=== PATIENT | female | born 1960 | race Caucasian/White ===

== ENCOUNTER → 2017-07-31 09:12 | Outpatient (CLI) | payer BC, SELFPAY ==
[2017-07-31 09:37] LABS: Basophils % 0.4 % (0.1-2.0); Eosinophils # 0.1 K/mm3 (0.0-0.4); Hematocrit 43.7 % (37.0-47.0); Hemoglobin 14.4 g/dL (12.2-16.2); Lymphocytes % 29.6 K/mm3 (10-50); Mean Corpuscular HGB Conc 32.9 g/dL (31.8-35.4); Mean Corpuscular Hemoglobin 35.3 pg (27.0-31.2); Mean Corpuscular Volume 107.3 fl (81-99); Mean Platelet Volume 8.1 fl (7.4-10.4); Monocytes # 0.5 K/mm3 (0.1-1.0); Neutrophils # 4.1 K/mm3 (1.8-7.8); Platelet Count 173 K/mm3 (142-424); Red Blood Count 4.07 M/mm3 (4.20-5.40); Red Cell Distribution Width 13.3 % (11.5-17.5); White Blood Count 6.6 K/mm3 (4.8-10.8)
[2017-07-31 10:40] LABS: Hemoglobin A1C 5.2 % (0.0-7.0)
[2017-07-31 11:19] LABS: Alanine Aminotransferase 28 U/L (12-78); Albumin Level 3.6 gm/dL (3.4-5.0); Albumin/Globulin Ratio 1.1 (1.1-1.8); Alkaline Phosphatase 90 U/L (46-116); Anion Gap 12.6 mEq/L (5-15); Aspartate Amino Transferase 14 U/L (15-37); Bilirubin,Total 0.5 mg/dL (0.2-1.0); Blood Urea Nitrogen 12 mg/dL (7-18); Calcium 8.9 mg/dL (8.5-10.1); Carbon Dioxide 29 mmol/L (21.0-32.0); Chloride 108 mmol/L (98-107); Chol/HDL Ratio 3.2 (1-3.5); Cholesterol 199 mg/dL (140-200); Creatinine,Serum 0.76 mg/dL (0.55-1.02); Estimated Glomerular Filt Rate 79 ml/min (>60); GFR (African American) 96 ML/MIN (>60); Globulin 3.4 gm/dl (1.3-3.2); Glucose 107 mg/dL (74-106); HDL Cholesterol 63 mg/dL (29-89); LDL Cholesterol 116 mg/dL (0-130); Potassium 4.6 mmoL/L (3.5-5.1); Sodium 145 mmol/L (136-145); Triglycerides 98 mg/dL (30-200); VLDL Cholesterol 20 mg/dL (0-40)
[2017-08-01 10:19] LABS: Vitamin D 25 Hydroxy 54.3 ng/mL (30.0-100.0)
== END ==
PROVIDERS: Visit Provider Nurse Practitioner Family
DX: R73.9 Hyperglycemia, unspecified (principal); E55.9 Vitamin D deficiency, unspecified; E03.9 Hypothyroidism, unspecified; J44.9 Chronic obstructive pulmonary disease, unspecified
CPT/HCPCS: 36415; 80053; 80061; 82652; 83036; 84443; 85025

== ENCOUNTER 2021-02-09 19:30 | Emergency (ER) | payer BC, SELFPAY ==
[2021-02-09 19:32] VITALS: BP 98/69; PULSE 84; RESP 22; TEMP 37.1; O2SAT 85; BMI 37.2
--- NOTE | 2021-02-09 20:08 | ECG_ITS ---
APPROVED REPORT Exam: Resting ECG HR:143 bpm ECG Measurements Heart Rate 143 AXES SD 172 P 56 QRSd 72 QRS 9 QT 334 T 61 QTc 515 Conclusion NSR Low voltage QRS Borderline ECG Electronically signed by : Robbie Walker MD 02/11/2021 08:32:31
--- NOTE | 2021-02-09 20:09 | XR_ITS ---
PROCEDURE INFORMATION: Exam: XR Chest Exam date and time: 02/09/2021 8:09 PM Age: 60 years old Clinical indication: Shortness of breath; Additional info: Hypoxia TECHNIQUE: Imaging protocol: XR of the chest. Views: 1 view. COMPARISON: CR CXR CHEST(2 VIEWS-NOT PORTABLE) 01/03/2015 6:31 PM FINDINGS: Lungs: Granulomatous change. No consolidation. Coarse interstitial lung markings likely chronic. Pleural spaces: Unremarkable. No pleural effusion. No pneumothorax. Heart/Mediastinum: Unremarkable. No cardiomegaly. Bones/joints: Unremarkable. IMPRESSION: No acute findings.
[2021-02-09 21:01] LABS: VBG Base Excess -7.5 mmol/L (-2.4-2.3); VBG HCO3 20.7 mmol/L (23-30); VBG Oxygen Saturation 61.2 % (50-70); VBG PO2 37.1 mmol/L (28-40); VBG Total CO2 22.4 mmol/L (23-27)
[2021-02-09 21:04] LABS: VBG PH 7.19 mmol/L (7.31-7.41)
[2021-02-09 21:15] LABS: Coronavirus 19, PCR Not Detected (NotDetected); Influenza A, PCR Not Detected (NotDetected); Influenza B, PCR Not Detected (NotDetected)
[2021-02-09 21:17] LABS: Basophils # 0.1 K/mm3 (0-0.2); Basophils % 0.4 % (0.1-2.0); Eosinophils % 0.3 % (0.1-12.0); Hematocrit 38.4 % (37.0-47.0); Hemoglobin 12.4 g/dL (12.2-16.2); Lymphocytes # 1.3 K/mm3 (0.7-4.5); Lymphocytes % 8.6 % (10-50); Mean Corpuscular HGB Conc 32.2 g/dL (31.8-35.4); Mean Corpuscular Hemoglobin 35.6 pg (27.0-31.2); Mean Corpuscular Volume 110.4 fl (81-99); Monocytes # 1.3 K/mm3 (0.1-1.0); Monocytes % 8.5 % (1.7-9.3); Neutrophils # 12.5 K/mm3 (1.8-7.8); Neutrophils % 82.2 % (37.0-80.0); Platelet Count 253 K/mm3 (142-424); Red Blood Count 3.48 M/mm3 (4.20-5.40); Red Cell Distribution Width 13.8 % (11.5-17.5); White Blood Count 15.2 K/mm3 (4.8-10.8)
[2021-02-09 21:21] LABS: MANUAL DIFFERENTIAL MANUAL DIFFERENTIAL (MANUAL DIFF)
[2021-02-09 21:30] VITALS: BP 92/56; PULSE 50; RESP 19; O2SAT 92
[2021-02-09 21:30] LABS: Lymphocytes % 3 % (10-50); Monocytes % 2 % (2-9); Neutrophils % 86 % (42-76); Total Cells Counted 100
[2021-02-09 21:31] VITALS: BP 94/41; PULSE 54; RESP 19; O2SAT 93
[2021-02-09 21:31] LABS: Macrocytosis 2+; Platelet Estimate Normal; Toxic Granulation 1+; Toxic Vacuolation 1+
[2021-02-09 21:38] LABS: Chloride 91 mmol/L (98-107); Sodium 130 mmol/L (136-145)
[2021-02-09 21:40] LABS: Alanine Aminotransferase 71 U/L (12-78); Aspartate Amino Transferase 91 U/L (14-36); Blood Urea Nitrogen 60 mg/dl (7-17); Creatinine Clearance Estimated 15 mL/min (50-200); Estimated Glomerular Filt Rate 6 ml/min (>60); GFR (African American) 7 ML/MIN (>60)
[2021-02-09 21:41] LABS: Albumin Level 3.7 g/dl (3.5-5.0); Albumin/Globulin Ratio 1.2 (1.1-1.8); Alkaline Phosphatase 110 U/L (38-126); Bilirubin,Total 0.7 mg/dl (0.2-1.3); Carbon Dioxide 25 mmol/L (22.0-30.0); Globulin 3.2 g/dL (1.3-3.2); Glucose 105 mg/dl (74-100); Lipase 65 U/L (23-300); Potassium 6.7 mmoL/L (3.5-5.1); Total Protein,Serum 6.9 g/dl (6.3-8.2)
--- NOTE | 2021-02-09 21:41 | PC.NURSE ---
notified MD of critical potassium 6.7
--- NOTE | 2021-02-09 21:45 | PC.NURSE ---
called [facility] and states no beds @ this time
--- NOTE | 2021-02-09 21:47 | PC.NURSE ---
calling [facility] @ this time
--- NOTE | 2021-02-09 21:47 | HMH.EDGENADL ---
ED Disposition Clinical Impression: Acute renal failure Qualifiers: Acute renal failure type: unspecified Qualified Code(s): N17.9 - Acute kidney failure, unspecified Sepsis Qualifiers: Sepsis type: sepsis due to unspecified organism Sepsis acute organ dysfunction status: with acute organ dysfunction Severe sepsis acute organ dysfunction type: acute renal failure Severe sepsis shock status: with septic shock Disposition: Xfer Short-Term Hosp Condition on Discharge: Critical Referrals: Regla Steinberg APRN [Primary Care Provider] - Time of Disposition: 23:04 - Critical Care Critical Care Time: Yes Attestation: On 02/09/21, the high probability of a clinically significant, sudden or life threatening deterioration of the following system(s) required my full and direct attention, intervention and personal management. The time I documented below is in addition to time spent performing reported procedures but includes the following listed in this critical care notation. Total Critical Care Time: 60 Vital system(s) involved:: Circulatory Failure, Renal Failure, Shock (Septic) My critical care processes included: Assessment & monitoring of V/S, Initial and Re-exams, Data Review/Interpretation, Coordinating Care, Medication Orders and management Medical Decision Making - Medical Records Medical records reviewed: Yes: I reviewed the patient's medical records. - Kyle Inquiry Pt receiving controlled substance: No Vital Signs: 02/09/21 19:32 Temperature 98.7 F Temperature Source Oral Pulse Rate [Right] 84 Respiratory Rate 22 Blood Pressure [Right Arm] 98/69 L Blood Pressure Mean [Right Arm] 78 02 Sat by Pulse Oximetry 85 L Oxygen Delivery Method Nasal Cannula Oxygen Flow Rate (LPM) 2 - Lab Data Lab Results 02/09/21 20:13: VBG pH 7.19 L, VBG pCO2 55.0 H, VBG pO2 37.1, VBG HCO3 20.7 L, VBG Total CO2 22.4 L, VBG O2 Saturation 61.2, VBG Base Excess -7.5 L 02/09/21 20:45: WBC 15.2 H, RBC 3.48 L, Hgb 12.4, Hct 38.4, MCV 110.4 H, MCH 35.6 H, MCHC 32.2, RDW 13.8, Plt Count 253, MPV 10.0, Neut % (Auto) 82.2 H, Lymph % (Auto) 8.6 L, [place] % (Auto) 8.5, Eos % (Auto) 0.3, Baso % (Auto) 0.4, Neut # (Auto) 12.5 H, Lymph # (Auto) 1.3, [place] # (Auto) 1.3 H, Eos # (Auto) 0.0, Baso # (Auto) 0.1, Total Counted 100, Neutrophils % (Manual) 86 H, Band Neutrophils % 9.0 H, Lymphocytes % (Manual) 3 L, Monocytes % (Manual) 2, Toxic Granulation 1+, Toxic Vacuolation 1+, Platelet Estimate Normal, Macrocytosis 2+ 02/09/21 20:45: Lactate 3.0 H 02/09/21 21:05: SARS-CoV-2 (PCR) Not detected, Influenza A Untype (PCR) Not detected, Influenza Type B (PCR) Not detected 02/09/21 21:22: Sodium 130 L, Potassium 6.7 H*, Chloride 91 L, Carbon Dioxide 25, BUN 60 H, Creatinine 7.20 H, Estimated Creat Clear 15, Estimated GFR 6 L*, Est GFR ( Amer) 7 L*, Glucose 105 H, Calcium 8.0 L, Total Bilirubin 0.7, AST 91 H, ALT 71, Alkaline Phosphatase 110, Total Protein 6.9, Albumin 3.7, Globulin 3.2, Albumin/Globulin Ratio 1.2, Lipase 65 Result diagrams: 02/09/21 20:45 02/09/21 21:22 Orders (Tests/Meds): ED MEDICATIONS Generic Name Dose Route Start Last Admin Trade Name Freq PRN Reason Stop Dose Admin Folic Acid 1 mg 02/10/21 09:00 Folic Acid 1mg Tablet PO 03/12/21 08:59 DAILY ELHAM Sodium Chloride 1,000 mls @ 999 mls/hr 02/09/21 20:15 02/09/21 20:44 Sod Chlor 0.9% 1000ml Bag IV 02/09/21 21:15 999 mls/hr .Q1H1M ELHAM Administration Lactated Ringer's 1,000 mls @ 999 mls/hr 02/09/21 21:30 02/09/21 21:38 Lactated Ringer's 1000 Ml Bag IV 02/09/21 22:30 999 mls/hr .Q1H1M ELHAM Administration Discontinued Medications Generic Name Dose Route Start Last Admin Trade Name Freq PRN Reason Stop Dose Admin Albuterol/Ipratropium 6 ml 02/09/21 20:20 02/09/21 20:46 Ipratropium/Albuterol 3 Ml Neb IH 02/09/21 20:21 6 ml ONCE ONE Administration Cyanocobalamin 1,000 mcg 02/09/21 21:30 02/09/21 21:44 Vitamin B-12 1
--- NOTE | 2021-02-09 21:51 | PC.NURSE ---
on phone with Dr Castro @ this time
--- NOTE | 2021-02-09 21:56 | PC.NURSE ---
declined pt. Called [facility], they have no beds and declined pt transfer. [facility] they have [facility] and declined transfer. Calling [facility] at this
[2021-02-09 22:03] LABS: NT Pro Brain Natriuretic Pep. 467 pg/mL (0-125)
--- NOTE | 2021-02-09 22:03 | PC.NURSE ---
has no beds available @ this time.
--- NOTE | 2021-02-09 22:03 | PC.NURSE ---
[facility] has no beds @ this time
--- NOTE | 2021-02-09 22:05 | PC.NURSE ---
Called [facility] for weather check, they will call back.
--- NOTE | 2021-02-09 22:10 | PC.NURSE ---
Samira @ [email or web address] states [facility] can accept to fly pt d/t weather for ~ 1hr, then weather is expected to decline. MD chan
--- NOTE | 2021-02-09 22:14 | PC.NURSE ---
Rashid @ [place] accepts pt. [facility] accepts pt 12 min ETa
--- NOTE | 2021-02-09 22:54 | PC.NURSE ---
Gave report to Tracy CRAIG @ [facility] # [phone], ICU bed 118
[2021-02-09 23:00] LABS: Procalcitonin 19.2 ng/mL (0.0-2.0)
[2021-02-09 23:33] VITALS: BP 87/60; PULSE 60; RESP 16; TEMP 36.9; O2SAT 95
--- NOTE | 2021-02-09 23:33 | PC.NURSE ---
Dr. Diaz updated pt's on pt'd condition and transfer to [facility]
== END 2021-02-09 23:36 | disposition short-term general hospital (02) ==
PROVIDERS: Emergency Provider Student in an Organized Health Care Education/Training Program; PCP Nurse Practitioner Family
DX: N17.9 Acute kidney failure, unspecified (principal); A41.51 Sepsis due to Escherichia coli [E. coli]; J44.9 Chronic obstructive pulmonary disease, unspecified; Z79.899 Other long term (current) drug therapy
CPT/HCPCS: 36415; 71045; 80053; 82803; 83605; 83690; 83880; 84145; 85007; 85025; 87040; 87077; 87186; 93005; 96365; 96367; 96375; 99285; C9803; J2405; U0003; U0005

== ENCOUNTER → 2021-03-19 15:04 | Outpatient (CLI) | payer BC, SELFPAY | PROVIDERS: Visit Provider Nurse Practitioner Family | DX: R30.0 Dysuria (principal); B96.20 Unspecified Escherichia coli [E. coli] as the cause of diseases classified elsewhere | CPT/HCPCS: 87086; 87088; 87186 ==

== ENCOUNTER → 2021-05-21 09:31 | Outpatient (CLI) | payer BC, SELFPAY ==
--- NOTE | 2021-05-21 09:45 | XR_ITS ---
FINAL REPORT TECHNIQUE: Chest PA & Lateral CLINICAL HISTORY: SOB,CHEST PAIN, lung pain on left side COMPARISON: February 09, 2021 FINDINGS: 2 views of the chest were performed. The heart size is normal. The mediastinum is within normal limits. There is no acute cardiopulmonary process. There are no pleural effusions. There is no pneumothorax. The bony thorax appears intact. IMPRESSION: No acute cardiopulmonary process. Reviewed, Interpreted and Dictated by Ariel Bhatt MD Transcribed by Heriberto Casas Authenticated by Ariel Bhatt MD on 05/21/2021 11:17:22 AM [facility]
[2021-05-21 10:02] LABS: Basophils # 0.1 K/mm3 (0-0.2); Basophils % 0.6 % (0.1-2.0); Eosinophils # 0.2 K/mm3 (0.0-0.4); Eosinophils % 2.6 % (0.1-12.0); Hematocrit 36.6 % (37.0-47.0); Lymphocytes # 1.5 K/mm3 (0.7-4.5); Lymphocytes % 17.7 % (10-50); Mean Corpuscular HGB Conc 32.7 g/dL (31.8-35.4); Mean Corpuscular Hemoglobin 33.2 pg (27.0-31.2); Mean Corpuscular Volume 101.4 fl (81-99); Mean Platelet Volume 8.4 fl (7.4-10.4); Monocytes # 0.5 K/mm3 (0.1-1.0); Monocytes % 5.2 % (1.7-9.3); Neutrophils # 6.5 K/mm3 (1.8-7.8); Neutrophils % 73.9 % (37.0-80.0); Platelet Count 319 K/mm3 (142-424); Red Blood Count 3.61 M/mm3 (4.20-5.40); White Blood Count 8.7 K/mm3 (4.8-10.8)
[2021-05-21 10:29] LABS: Chloride 105 mmol/L (98-107); Potassium 4.5 mmoL/L (3.5-5.1); Sodium 138 mmol/L (136-145)
[2021-05-21 10:32] LABS: Alanine Aminotransferase 18 U/L (12-78); Albumin Level 4.3 g/dl (3.5-5.0); Albumin/Globulin Ratio 1.7 (1.1-1.8); Alkaline Phosphatase 99 U/L (38-126); Anion Gap 10.5 mEq/L (5-15); Aspartate Amino Transferase 21 U/L (14-36); Bilirubin,Total 0.4 mg/dl (0.2-1.3); Blood Urea Nitrogen 24 mg/dl (7-17); Carbon Dioxide 27 mmol/L (22.0-30.0); Estimated Glomerular Filt Rate 33 ml/min (>60); GFR (African American) 40 ML/MIN (>60); Globulin 2.6 g/dL (1.3-3.2); Total Protein,Serum 6.9 g/dl (6.3-8.2)
[2021-05-21 10:33] LABS: Calcium 8.1 mg/dl (8.4-10.2); Glucose 88 mg/dl (74-100)
[2021-05-21 10:41] LABS: NT Pro Brain Natriuretic Pep. 63.1 pg/mL (0-125)
== END ==
PROVIDERS: PCP Nurse Practitioner Family; Visit Provider Nurse Practitioner Family
DX: R06.02 Shortness of breath (principal); R07.9 Chest pain, unspecified; R60.9 Edema, unspecified
CPT/HCPCS: 36415; 71046; 80053; 83880; 85025

== ENCOUNTER → 2021-06-05 13:09 | Outpatient (CLI) | payer BC, SELFPAY | PROVIDERS: PCP Nurse Practitioner Family; Visit Provider Nurse Practitioner Family | DX: R06.02 Shortness of breath (principal); R60.9 Edema, unspecified | CPT/HCPCS: 93306 ==

== ENCOUNTER 2023-09-15 07:55 | Outpatient (CLI) | payer BC, SELFPAY | END 2023-09-15 23:59 | disposition home or self-care (01) | LOC: RT 07:55 | PROVIDERS: PCP Nurse Practitioner Family; Visit Provider Nurse Practitioner Family | DX: J44.9 Chronic obstructive pulmonary disease, unspecified (principal); J45.998 Other asthma | CPT/HCPCS: 94060; 94726; 94729 ==